=== PATIENT | female | born 1950 | race Two or more races ===

== ENCOUNTER 2018-02-11 11:59 | Observation (INO) | payer OTHER, MEDICAID ==
[~2018-02-11] VITALS: Ht 144.8 cm; Wt 66.2 kg
[~2018-02-11 11:59] MED LIST: ALBU2.5V NEB; AMOX1TAB64 PO; ASPI-650 PO; ATOR10TA9 PO; CYCL-259 PO; FURO-93 PO; HYDR-3240 PO; HYDR12.53 PO; LORA-446 PO; LOSA25TA2 PO; LOSA50TA6 PO; METF10002 PO; METF500T PO; METF500T4 PO; PANT40TA3 PO; PANT40TA5 PO; POTA20TA91 PO
[2018-02-11] MEDS ORDERED: ASPIRIN 81 MG TABLET CHEW PO ONE (12:30)
[2018-02-11] MEDS ORDERED: ASPIRIN 81 MG TABLET CHEW ONE (12:39)
[2018-02-11 13:15] LABS: BASOPHILS # (AUTO) 0.02 x10^3/uL (0-0.1); BASOPHILS % (AUTO) 0 % (0-1); EOSINOPHILS # (AUTO) 0.21 x10^3/uL (0-0.4); EOSINOPHILS % (AUTO) 4 % (1-7); LYMPHOCYTES # (AUTO) 1.97 x10^3/uL (1-3.4); LYMPHOCYTES % (AUTO) 34 % (22-44); MD NO; MEAN CORPUSCULAR HEMOGLOBIN 27.7 pg (27.0-34.8); MEAN CORPUSCULAR HGB CONC 32.4 g/dL (32.4-35.8); MEAN CORPUSCULAR VOLUME 85.6 fL (80-100); MEAN PLATELET VOLUME 7.9 fL (7.4-10.4); MONOCYTES % (AUTO) 9 % (2-9); NEUTROPHILS # (AUTO) 3.15 x10^3/uL (1.8-6.8); NEUTROPHILS % (AUTO) 54 % (42-75); PLATELET COUNT 254 x10^3/uL (130-400); RED BLOOD COUNT 5.09 x10^6/uL (3.82-5.3); RED CELL DISTRIBUTION WIDTH 14.4 % (9.6-15.2)
[2018-02-11 13:21] LABS: ALBUMIN 3.8 g/dL (3.4-5.0); ANION GAP 7 mmol/L (5-15); CALCIUM 9.5 mg/dL (8.5-10.1); CHLORIDE 105 mmol/L (98-107)
[2018-02-11 13:29] LABS: ALANINE AMINOTRANSFERASE 21 U/L (12-78); ALKALINE PHOSPHATASE 72 U/L (45-117); BILIRUBIN,TOTAL 0.9 mg/dL (0.2-1.0); CREATININE 0.67 mg/dL (0.55-1.02); TOTAL PROTEIN 7.7 g/dL (6.4-8.2); TROPONIN I < 0.015 ng/mL (0.000-0.045)
[2018-02-11] MEDS ORDERED: SODIUM CHLORIDE FLUSH 10ML SYR IVF PRN (14:00)
[2018-02-11] MEDS ORDERED: METF1000 PO (14:20)
[2018-02-11] MEDS ORDERED: LISI-167 PO (14:20)
[2018-02-11] MEDS ORDERED: D5%-0.45% NACL 1,000 ML IV SCH (14:23)
[2018-02-11] MEDS ORDERED: NITROGLYCERIN 0.4 MG BOTTLE (25 TABS) SL PRN (14:30)
[2018-02-11] MEDS ORDERED: DEXTROSE 4 GM TAB.CHEW PO PRN (14:30)
[2018-02-11] MEDS ORDERED: DEXTROSE 50%, 50ML SYRINGE IVPush PRN (14:30)
[2018-02-11] MEDS: ENOXAPARIN 40 MG/0.4 ML SQ SCH (14:30)
[2018-02-11] MEDS ORDERED: GLUCAGON 1 MG IM PRN (14:30)
[2018-02-11 14:59] LABS: TROPONIN I < 0.015 ng/mL (0.000-0.045)
[2018-02-11] MEDS ORDERED: ALBUTEROL SULFATE 2.5 MG/3 ML NEB PRN (15:00)
[2018-02-11] MEDS ORDERED: SODIUM CHLORIDE 0.9% 1,000 ML IV SCH (15:00)
[2018-02-11] MEDS ORDERED: hydrALAzine 20 MG/ML, 1ML IV PRN (15:30)
[2018-02-11] MEDS: INSULIN LISPRO 100 UNITS/ML, PEN SQ-INSULIN SCH ×2 (15:35→21:00)
[2018-02-11] MEDS: SODIUM CHLORIDE 0.9% 1,000 ML IV SCH (15:39)
[2018-02-11 16:33] LABS: CHOL/HDL RATIO 2.4
[2018-02-11 17:22] VITALS: BP 153/85
[2018-02-11 20:04] VITALS: BP 136/75
[2018-02-11 20:37] LABS: TROPONIN I < 0.015 ng/mL (0.000-0.045)
[2018-02-11] MEDS ORDERED: ATORVASTATIN 80 MG TABLET PO SCH (21:00)
[2018-02-11] MEDS: SODIUM CHLORIDE FLUSH 10ML SYR IVF SCH (21:24)
[2018-02-12 00:35] VITALS: BP 108/68
[2018-02-12 05:47] LABS: BASOPHILS # (AUTO) 0.03 x10^3/uL (0-0.1); BASOPHILS % (AUTO) 1 % (0-1); EOSINOPHILS # (AUTO) 0.27 x10^3/uL (0-0.4); EOSINOPHILS % (AUTO) 5 % (1-7); LYMPHOCYTES # (AUTO) 2.75 x10^3/uL (1-3.4); LYMPHOCYTES % (AUTO) 48 % (22-44); MD NO; MEAN CORPUSCULAR HEMOGLOBIN 27.7 pg (27.0-34.8); MEAN CORPUSCULAR HGB CONC 32.6 g/dL (32.4-35.8); MONOCYTES # (AUTO) 0.61 x10^3/uL (0.2-0.8); MONOCYTES % (AUTO) 11 % (2-9); NEUTROPHILS # (AUTO) 2.04 x10^3/uL (1.8-6.8); NEUTROPHILS % (AUTO) 36 % (42-75); PLATELET COUNT 248 x10^3/uL (130-400); RED BLOOD COUNT 4.93 x10^6/uL (3.82-5.3); RED CELL DISTRIBUTION WIDTH 14.5 % (9.6-15.2)
[2018-02-12 05:53] LABS: ALBUMIN 3.5 g/dL (3.4-5.0); ANION GAP 5 mmol/L (5-15); CHLORIDE 107 mmol/L (98-107)
[2018-02-12 05:56] LABS: ALANINE AMINOTRANSFERASE 22 U/L (12-78); ALKALINE PHOSPHATASE 75 U/L (45-117); BILIRUBIN,TOTAL 1.1 mg/dL (0.2-1.0); CREATININE 0.62 mg/dL (0.55-1.02); TOTAL PROTEIN 7.4 g/dL (6.4-8.2)
[2018-02-12] MEDS: SODIUM CHLORIDE 0.9% 1,000 ML IV SCH ×2 (06:26→15:00)
[2018-02-12] MEDS: INSULIN LISPRO 100 UNITS/ML, PEN SQ-INSULIN SCH ×3 (07:00→16:00)
[2018-02-12 07:12] VITALS: BP 119/75
[2018-02-12] MEDS ORDERED: REGADENOSON 0.4 MG/5 ML SYRINGE ONE (08:21)
[2018-02-12] MEDS: SODIUM CHLORIDE FLUSH 10ML SYR IVF SCH (08:24)
[2018-02-12] MEDS ORDERED: LISINOPRIL 10 MG TABLET PO SCH (09:00)
[2018-02-12] MEDS ORDERED: ASPIRIN 81 MG TABLET CHEW PO SCH (09:00)
[2018-02-12 12:35] VITALS: BP 110/74
[2018-02-12] MEDS ORDERED: ASPI-515 PO (14:59)
[2018-02-12] MEDS ORDERED: OMEP20CA14 PO (14:59)
[2018-02-12] MEDS ORDERED: ATOR10TA9 PO (14:59)
[2018-02-12] MEDS ORDERED: SODIUM CHLORIDE 0.9% 1,000 ML IV SCH (15:00)
[2018-02-12] MEDS: ENOXAPARIN 40 MG/0.4 ML SQ SCH (15:05)
== END 2018-02-12 18:00 | disposition home or self-care (01) ==
LOC: ED 13:46 → INTOOBSV 13:47 → EDIP 13:47 → ED 14:04 → 5SO 15:03
PROVIDERS: ADMIT Hospitalist; ATTEND Hospitalist
DX: R07.89 Other chest pain (principal); E11.9 Type 2 diabetes mellitus without complications; E78.00 Pure hypercholesterolemia, unspecified; E78.5 Hyperlipidemia, unspecified; G47.30 Sleep apnea, unspecified; I10 Essential (primary) hypertension; K21.9 Gastro-esophageal reflux disease without esophagitis; Z79.82 Long term (current) use of aspirin
CPT/HCPCS: 36415; 71045; 78452; 80053; 80061; 82962; 83036; 83605; 83690; 84145; 84484; 85025; 87040; 93005; 93017; 96360; 96361; 96372; G0378; J1650; J2785; A9502; C9898; J7030

== ENCOUNTER 2018-10-14 12:42 | Emergency (ER) | payer MEDICARE, MEDICAID ==
[~2018-10-14] VITALS: Ht 144.8 cm; Wt 65.0 kg
[~2018-10-14 12:42] MED LIST changes: +ASPI-515 PO; +HYDR12.517 PO; -HYDR12.53 PO; +LISI-167 PO; -LOSA50TA6 PO; +LOSA50TA7 PO; +METF1000 PO; +METF500T17 PO; -METF500T4 PO; +OMEP20CA14 PO
--- NOTE | 2018-10-14 13:18 | NUR ---
Assumed care of patient. C/O SOB and cough x 2 weeks. Report white sputum. Report low O2 sats at home, but 95% RA in ED. Placed on NIBP and pulse ox. Daughter at bedside. Will continue to monitor.
[2018-10-14] MEDS ORDERED: SODIUM CHLORIDE FLUSH 10ML SYR IVF ONE (13:30)
[2018-10-14 13:45] LABS: BASOPHILS # (AUTO) 0.03 x10^3/uL (0-0.1); BASOPHILS % (AUTO) 0 % (0-1); EOSINOPHILS # (AUTO) 0.35 x10^3/uL (0-0.4); EOSINOPHILS % (AUTO) 6 % (1-7); LYMPHOCYTES # (AUTO) 1.14 x10^3/uL (1-3.4); LYMPHOCYTES % (AUTO) 19 % (22-44); MD NO; MEAN CORPUSCULAR HEMOGLOBIN 27.6 pg (27.0-34.8); MEAN CORPUSCULAR HGB CONC 32.1 g/dL (32.4-35.8); MEAN CORPUSCULAR VOLUME 86.2 fL (80-100); MEAN PLATELET VOLUME 7.6 fL (7.4-10.4); MONOCYTES # (AUTO) 0.55 x10^3/uL (0.2-0.8); MONOCYTES % (AUTO) 9 % (2-9); NEUTROPHILS % (AUTO) 67 % (42-75); PLATELET COUNT 241 x10^3/uL (130-400); RED BLOOD COUNT 4.79 x10^6/uL (3.82-5.3); RED CELL DISTRIBUTION WIDTH 13.7 % (9.6-15.2)
[2018-10-14 13:58] LABS: ALANINE AMINOTRANSFERASE 21 U/L (12-78); ALBUMIN 3.6 g/dL (3.4-5.0); ANION GAP 8 mmol/L (5-15); CHLORIDE 102 mmol/L (98-107)
[2018-10-14 14:02] LABS: ALKALINE PHOSPHATASE 77 U/L (45-117); BILIRUBIN,TOTAL 0.7 mg/dL (0.2-1.0); TOTAL PROTEIN 7.3 g/dL (6.4-8.2); TROPONIN I < 0.015 ng/mL (0.000-0.045)
--- NOTE | 2018-10-14 14:14 | NUR ---
Ambulated with a steady gait to the restroom.
--- NOTE | 2018-10-14 14:33 | NUR ---
Patient back from CTA.
[2018-10-14] MEDS ORDERED: OMNIPAQUE 350 MG/ML, 100ML BOTTLE ONE (14:54)
[2018-10-14] MEDS ORDERED: ALBUTEROL/IPRATROPIUM 2.5MG/0.5MG, 3 ML ONE (15:25)
[2018-10-14] MEDS ORDERED: ALBUTEROL/IPRATROPIUM 2.5MG/0.5MG, 3 ML NPPB ONE (15:30)
--- NOTE | 2018-10-14 15:30 | NUR ---
RT at bedside.
[2018-10-14 16:08] VITALS: BP 141/85
--- NOTE | 2018-10-14 16:08 | NUR ---
Patient/Caregiver given discharge instructions and they have confirmed that they understand the instructions. Patient ambulatory with steady gait.
== END 2018-10-14 16:09 | disposition home or self-care (01) ==
LOC: ED 13:43
DX: R06.00 Dyspnea, unspecified (principal); J00 Acute nasopharyngitis [common cold]; E78.00 Pure hypercholesterolemia, unspecified; I10 Essential (primary) hypertension; E11.9 Type 2 diabetes mellitus without complications
CPT/HCPCS: 36415; 71046; 71275; 80053; 83605; 83880; 84484; 85025; 87040; 93005; 94640; 99284; Q9967

== ENCOUNTER → 2019-02-25 | Outpatient (CLI) | payer MEDICARE, MEDICAID ==
[~2019-02-25] MED LIST changes: +LOSA50TA14 PO; -LOSA50TA7 PO; +REGADENOSON 0.4 MG/5 ML SYRINGE ONE
== END | disposition home or self-care (01) ==
LOC: RAD 11:02
PROVIDERS: ATTEND Internal Medicine Cardiovascular Disease
DX: I08.2 Rheumatic disorders of both aortic and tricuspid valves (principal); E11.9 Type 2 diabetes mellitus without complications; I10 Essential (primary) hypertension
CPT/HCPCS: 78452; 93017; 93306; A9502; J2785

== ENCOUNTER 2019-07-23 10:14 | Outpatient (CLI) | payer MEDICARE, MEDICAID ==
[~2019-07-23 10:14] MED LIST changes: +BUTA1CAP30 PO; +CALC250T PO; +CHOL500062 PO; +GLIP-142 PO; +MELO15TA24 PO; +MONT10TA9 PO; +RANI300T PO; -REGADENOSON 0.4 MG/5 ML SYRINGE ONE; +SAXA5TAB PO; +VITA1TAB19 PO
== END 2019-07-23 23:59 | disposition home or self-care (01) ==
LOC: CFH 10:14
PROVIDERS: ATTEND Internal Medicine Cardiovascular Disease
DX: Z02.9 Encounter for administrative examinations, unspecified (principal)

== ENCOUNTER → 2020-01-15 | Outpatient (CLI) | payer MEDICARE, MEDICAID ==
[~2020-01-15] MED LIST changes: +MONT10TA11 PO; -MONT10TA9 PO; -OMEP20CA14 PO; +OMEP20CA20 PO; +OMNIPAQUE 350 MG/ML, 100ML BOTTLE ONE
== END | disposition home or self-care (01) ==
LOC: CVU 13:54
PROVIDERS: ATTEND Internal Medicine Cardiovascular Disease
DX: I35.0 Nonrheumatic aortic (valve) stenosis (principal); I51.7 Cardiomegaly
CPT/HCPCS: 71275; 93306; Q9967

== ENCOUNTER 2020-03-17 12:15 | Day surgery (SDC) | payer MEDICARE, MEDICAID ==
[~2020-03-17] VITALS: Ht 144.8 cm; Wt 65.9 kg
[~2020-03-17 12:15] MED LIST changes: +DIPHENHYDRAMINE 50 MG/ML, 1ML ONE; -OMNIPAQUE 350 MG/ML, 100ML BOTTLE ONE
[2020-03-17] MEDS ORDERED: SODIUM CHLORIDE 0.9% 1,000 ML IV SCH (12:42)
[2020-03-17 12:55] VITALS: BP 170/81
[2020-03-17] MEDS ORDERED: DIPHENHYDRAMINE 50 MG/ML, 1ML IVPush ONE (13:00)
[2020-03-17 13:16] LABS: BASOPHILS # (AUTO) 0.02 x10^3/uL (0-0.1); BASOPHILS % (AUTO) 1 % (0-1); EOSINOPHILS # (AUTO) 0.31 x10^3/uL (0-0.4); EOSINOPHILS % (AUTO) 6 % (1-7); LYMPHOCYTES # (AUTO) 1.53 x10^3/uL (1-3.4); LYMPHOCYTES % (AUTO) 31 % (22-44); MD NO; MEAN CORPUSCULAR HEMOGLOBIN 27.4 pg (27.0-34.8); MEAN CORPUSCULAR HGB CONC 31.9 g/dL (32.4-35.8); MEAN PLATELET VOLUME 7.3 fL (7.4-10.4); MONOCYTES # (AUTO) 0.43 x10^3/uL (0.2-0.8); MONOCYTES % (AUTO) 9 % (2-9); NEUTROPHILS # (AUTO) 2.65 x10^3/uL (1.8-6.8); NEUTROPHILS % (AUTO) 54 % (42-75); PLATELET COUNT 231 x10^3/uL (130-400); RED BLOOD COUNT 4.86 x10^6/uL (3.82-5.3); RED CELL DISTRIBUTION WIDTH 15.7 % (9.6-15.2)
[2020-03-17] MEDS ORDERED: FLUT1BLS INH (13:23)
[2020-03-17] MEDS ORDERED: DOXA1TAB2 PO (13:23)
[2020-03-17] MEDS ORDERED: OMEP-110 PO (13:23)
[2020-03-17] MEDS ORDERED: GLIP5TAB22 PO (13:23)
[2020-03-17] MEDS ORDERED: HYDROCHLOROTH12.5 MG PO (13:23)
[2020-03-17 13:28] LABS: ANION GAP 7 mmol/L (5-15); CALCIUM 9.6 mg/dL (8.5-10.1); CHLORIDE 102 mmol/L (98-107); CREATININE 0.58 mg/dL (0.55-1.02)
[2020-03-17] MEDS ORDERED: MIDAZOLAM 1 MG/ML, 5ML ONE (13:35)
[2020-03-17] MEDS ORDERED: LIDOCAINE 2%, 20ML ONE (13:35)
[2020-03-17] MEDS ORDERED: FENTANYL PF 100 MCG/2ML ONE (13:35)
[2020-03-17] MEDS ORDERED: ADENOSINE IV PRN (14:30)
[2020-03-17] MEDS ORDERED: SODIUM CHLORIDE 0.9% IV PRN (14:30)
== END 2020-03-17 16:34 | disposition home or self-care (01) ==
LOC: CACL 12:15
PROVIDERS: ATTEND Internal Medicine Cardiovascular Disease
DX: R09.02 Hypoxemia (principal); I27.20 Pulmonary hypertension, unspecified; I10 Essential (primary) hypertension; E11.9 Type 2 diabetes mellitus without complications; E78.5 Hyperlipidemia, unspecified; G47.30 Sleep apnea, unspecified; E66.3 Overweight; Z68.33 Body mass index [BMI] 33.0-33.9, adult; Z79.82 Long term (current) use of aspirin; Z79.84 Long term (current) use of oral hypoglycemic drugs; Z79.899 Other long term (current) drug therapy; Z87.891 Personal history of nicotine dependence; Z99.81 Dependence on supplemental oxygen
CPT/HCPCS: 36415; 80048; 83880; 85025; 93005; 93451; 93463; 99156; 99157; C1769; C1894; J1200; J2250; J3010

== ENCOUNTER 2020-04-29 11:38 | Outpatient (CLI) | payer MEDICARE, MEDICAID ==
[~2020-04-29 11:38] MED LIST changes: -DIPHENHYDRAMINE 50 MG/ML, 1ML ONE; +DOXA1TAB2 PO; +FLUT1BLS INH; +GLIP5TAB22 PO; +HYDROCHLOROTH12.5 MG PO; +OMEP-110 PO
== END 2020-04-29 23:59 | disposition home or self-care (01) ==
LOC: RAD 11:38
PROVIDERS: ATTEND Nurse Practitioner
DX: R06.02 Shortness of breath (principal); I27.9 Pulmonary heart disease, unspecified
CPT/HCPCS: 71250

== ENCOUNTER 2020-10-18 15:26 | Outpatient (CLI) | payer MEDICARE, MEDICAID ==
[~2020-10-18 15:26] MED LIST changes: +HYDR-1067 PO; -HYDR-3240 PO; -MONT10TA11 PO; +MONT10TA96 PO; -PANT40TA5 PO; +PANT40TA6 PO
== END 2020-10-18 23:59 | disposition home or self-care (01) ==
LOC: RAD 15:26
PROVIDERS: ATTEND Internal Medicine Cardiovascular Disease
DX: I77.810 Thoracic aortic ectasia (principal); I11.9 Hypertensive heart disease without heart failure; E78.2 Mixed hyperlipidemia; G47.33 Obstructive sleep apnea (adult) (pediatric); Q25.46 Tortuous aortic arch
CPT/HCPCS: 71046

== ENCOUNTER 2021-06-22 11:07 | Outpatient (CLI) | payer MEDICARE, MEDICAID ==
[~2021-06-22 11:07] MED LIST changes: +ASPI-1026 PO; -ASPI-515 PO; -ASPI-650 PO; +ASPI-963 PO; -CYCL-259 PO; +CYCL10TA2 PO; -HYDR-1067 PO; +HYDR-2214 PO; +MONT10TA17 PO; -MONT10TA96 PO
[2021-06-22 11:45] LABS: BASOPHILS % (AUTO) 1 % (0-1); EOSINOPHILS % (AUTO) 6 % (1-7); LYMPHOCYTES % (AUTO) 30 % (22-44); MEAN CORPUSCULAR HEMOGLOBIN 25.8 pg (27.0-34.8); MEAN CORPUSCULAR HGB CONC 31.8 g/dL (32.4-35.8); MONOCYTES % (AUTO) 9 % (2-9); NEUTROPHILS % (AUTO) 55 % (42-75); PLATELET COUNT 279 x10^3/uL (130-400); RED BLOOD COUNT 4.77 x10^6/uL (3.82-5.3); RED CELL DISTRIBUTION WIDTH 16.1 % (9.6-15.2)
[2021-06-22 11:47] LABS: CHLORIDE 98 mmol/L (98-107)
[2021-06-22 12:03] LABS: ALANINE AMINOTRANSFERASE 24 U/L (12-78); ALBUMIN 3.7 g/dL (3.4-5.0); ALKALINE PHOSPHATASE 51 U/L (45-117); ANION GAP 5 mmol/L (5-15); CALCIUM 9.4 mg/dL (8.5-10.1); CHOL/HDL RATIO 1.8; CHOLESTEROL, TOTAL 101 mg/dL (140-239); CREATININE 0.52 mg/dL (0.55-1.02); HDL CHOL % 55 % (28-40); HDL CHOLESTEROL (DIRECT) 56 mg/dL (40-60); LDL CHOLESTEROL,CALCULATED 33 mg/dL (54-169); LDL/HDL RATIO 0.6 (0.5-3.0); TOTAL PROTEIN 7.6 g/dL (6.4-8.2); TRIGLYCERIDES 59 mg/dL (50-200); VLDL CHOLESTEROL 12 mg/dL (0-25)
== END 2021-06-22 23:59 | disposition home or self-care (01) ==
LOC: LAB 11:07
PROVIDERS: ATTEND Internal Medicine
DX: E11.42 Type 2 diabetes mellitus with diabetic polyneuropathy (principal); E55.9 Vitamin D deficiency, unspecified; E78.2 Mixed hyperlipidemia; E78.5 Hyperlipidemia, unspecified
CPT/HCPCS: 36415; 80053; 80061; 82043; 82306; 82570; 83036; 84443; 85025